=== PATIENT | female | born 1960 | race African-American/Black ===

== ENCOUNTER 2019-03-25 11:23 | Day surgery (SDC) | payer OTHER ==
[~2019-03-25] VITALS: Ht 170.2 cm; Wt 78.0 kg
[2019-03-25] MEDS ORDERED: LR 1,000 ML IV.SOLN IV ONE (12:50)
[2019-03-25] MEDS ORDERED: fentaNYL CITRATE 250 MCG/5 ML AMP IV ONE (12:50)
[2019-03-25] MEDS ORDERED: EPINEPHrine 1 MG/ML AMP IV ONE (12:50)
[2019-03-25] MEDS ORDERED: ONDANSETRON HCL 4 MG/2 ML VIAL IVP ONE (12:50)
[2019-03-25] MEDS ORDERED: LIDOCAINE/EPI 1% 1:100000 20 ML VIAL INJ ONE (12:50)
[2019-03-25] MEDS ORDERED: ROCURONIUM BROMIDE 10 MG/ML (ZEMURON) IV ONE (12:50)
[2019-03-25] MEDS ORDERED: MIDAZOLAM HCL 5 MG/5 ML VIAL IVP ONE (12:50)
[2019-03-25] MEDS ORDERED: DEXAMETHASONE SOD PHOSPHATE 4 MG/ML VIAL IVP ONE (12:50)
[2019-03-25] MEDS ORDERED: NS IRRIG SOLN 1000 ML IR ONE (12:50)
[2019-03-25] MEDS ORDERED: NS 1000 ML IV.SOLN IV ONE (12:50)
[2019-03-25] MEDS ORDERED: SEVOFLURANE 15 MIN GAS INH ONE (12:50)
[2019-03-25] MEDS ORDERED: WATER FOR IRRIGATION,STERILE 1,000 ML IRRIG.SOLN IR ONE (12:50)
[2019-03-25] MEDS ORDERED: PROPOFOL 200MG/ 20ML VIAL (DIPRIVAN) IV ONE (12:50)
[2019-03-25] MEDS ORDERED: OXYMETAZOLINE HCL 0.05% NASAL SPRAY NS ONE (12:50)
[2019-03-25] MEDS ORDERED: METOCLOPRAMIDE HCL 10 MG/2 ML VIAL IVP PRN (14:45)
[2019-03-25] MEDS ORDERED: MORPHINE 4 MG/ML INJ. SYRINGE IVP PRN ×3 (14:45)
[2019-03-25] MEDS ORDERED: METOCLOPRAMIDE HCL 10 MG/2 ML VIAL ONE (15:42)
[2019-03-25] MEDS ORDERED: METOCLOPRAMIDE HCL 10 MG/2 ML VIAL IVP ONE (16:00)
[2019-03-25] MEDS ORDERED: hydrALAZINE HCL 20 MG/ML VIAL IVP ONE (16:15)
[2019-03-25] MEDS ORDERED: hydrALAZINE HCL 20 MG/ML VIAL ONE (16:20)
[2019-03-25 18:13] VITALS: BP_SYST 145
== END 2019-03-25 19:10 | disposition home or self-care (01) ==
LOC: SMU 11:23 → SDS 11:23
PROVIDERS: ATTEND Otolaryngology
DX: J34.2 Deviated nasal septum (principal); J32.9 Chronic sinusitis, unspecified; K50.90 Crohn's disease, unspecified, without complications; Z87.891 Personal history of nicotine dependence; K21.9 Gastro-esophageal reflux disease without esophagitis; Z88.2 Allergy status to sulfonamides; Z88.0 Allergy status to penicillin
CPT/HCPCS: 30140; 30520; 31240; 31255; 31267; 31296; 88305; 88311; C1726; J0171; J0360; J1100; J2250; J2405; J2704; J2765; J3010; J7030; J7120